=== PATIENT | female | born 1985 | race Two or more races ===

== ENCOUNTER 2019-05-04 02:07 | Emergency (ER) | payer OTHER ==
[~2019-05-04] VITALS: Ht 167.6 cm; Wt 63.5 kg
[2019-05-04] MEDS ORDERED: DEXTROSE 10% IN WATER 500 ML IV ONE (02:19)
--- NOTE | 2019-05-04 02:25 | NUR ---
ISHAAN FROM HOME. LETHARGIC BUT RESPONSIVE. NO RESP DISTRESS NOTED. BROUGHT IN FOR OVERDOSE OF XANAX. PT WAS REPORTED FOUND IN THE BATH TUB. PT REPORTS THAT SHE DOES NOT WANT TO LIVE ANYMORE AND THAT SHE DOES NOT LIKE HER JOB. REPORT TAKING UNKNOWN AMOUNT OF XANAX. PT PLACE ON SUICIDE PRECAUTION, STRIPPED OFF CLOTHES ANY BODY CHECK. BELONGINGS KEPT IN NURSING STATION. PLACED ON MONITOR. BS CHECKED WITH RESULT Darryl, AWARE. EKG AT BEDSIDE. IV LINE OBATAINED ON THE R AC 20G. BLOOD DRAWN AND GIVEN TO DIRECTOR ELECTRONICS AT BEDSIDE.
[2019-05-04] MEDS ORDERED: DEXTROSE 10% IN WATER 250 ML BAG IV ONE (02:30)
[2019-05-04] MEDS ORDERED: IV NS 0.9% 1,000 ML BAG IV ONE ×2 (02:30→04:00)
[2019-05-04 02:33] LABS: BASOPHILS # (AUTO) 0.1 /CMM (0.0-0.2); BASOPHILS % (AUTO) 0.7 % (0.0-2.0); EOSINOPHILS % (AUTO) 1.3 % (0.0-6.0); HEMATOCRIT 41 % (33-45); HEMOGLOBIN 13.8 g/dL (11.5-14.8); LYMPHOCYTES # (AUTO) 3.5 /CMM (0.8-4.8); LYMPHOCYTES % (AUTO) 47.1 % (20.0-44.0); MEAN CORPUSCULAR HGB CONC 34 g/dl (31.0-36.0); MEAN CORPUSCULAR VOLUME 93 fL (82-100); MONOCYTES # (AUTO) 0.4 /CMM (0.1-1.30); MONOCYTES % (AUTO) 5.4 % (2.0-12.0); NEUTROPHILS # (AUTO) 3.4 /CMM (1.8-8.9); NEUTROPHILS % (AUTO) 45.5 % (43.0-81.0); PLATELET COUNT (AUTO) 166 /CMM (150-450); RED BLOOD CELL COUNT(AUTO) 4.35 MIL/uL (4.0-5.2); WHITE BLOOD COUNT (AUTO) 7.4 K/uL (4.3-11.0)
[2019-05-04 02:39] LABS: CALCIUM, SERUM 9.3 mg/dL (8.5-10.1); CARBON DIOXIDE 27 mmol/L (21-32); CHLORIDE 104 mmol/L (98-107); GLUCOSE 88 mg/dL (74-106); POTASSIUM 3.4 mmol/L (3.5-5.1); SODIUM SERUM 140 mmol/L (136-145); UREA NITROGEN, BLOOD 10 mg/dL (7-18)
[2019-05-04 02:44] LABS: ALANINE AMINOTRANSFERASE 20 U/L (12-78); ALCOHOL, BLOOD < 3 mg/dL (0-0); ALKALINE PHOSPHATASE 35 U/L (46-116); ASPARTATE AMINOTRANSFERASE 16 U/L (15-37); BILIRUBIN,DIRECT 0.2 mg/dL (0.0-0.2); BILIRUBIN,TOTAL 0.7 mg/dL (0.2-1.0); TOTAL PROTEIN, SERUM 7.2 g/dL (6.4-8.2)
[2019-05-04 02:48] LABS: ACETAMINOPHEN 0 ug/ml (10-30); SALICYLATE 1.2 mg/dL (2.8-20.0)
--- NOTE | 2019-05-04 03:14 | NUR ---
URINE SENT OT LAB
--- NOTE | 2019-05-04 03:23 | NUR ---
MADE AWARE OF BP 96/60. VERBARL ORDERS FOR 1L NS
[2019-05-04 03:58] LABS: APPEARANCE,URINE Clear (CLEAR); BILIRUBIN,URINE Negative (NEGATIVE); BLOOD, URINE Negative Ery/uL (NEGATIVE); COLOR,URINE Yellow (YELLOW); KETONES,URINE Negative (NEGATIVE); LEUKOCYTE ESTERASE ,URINE Negative (NEGATIVE); NITRITE, URINE Negative (NEGATIVE); PH,URINE 6.5 (5.0-8.0); PROTEIN,URINE Negative (NEGATIVE); UGLUCOSE 500 MG/DL mg/dL (NEGATIVE); UROBILINOGEN,URINE 0.2 EU/dL (0.2)
--- NOTE | 2019-05-04 06:45 | NUR ---
PATIENTS MEDICATIONS GIVEN TO PHARMACY.
--- NOTE | 2019-05-04 07:45 | NUR ---
ALICIA PRITCHETT CALLED FOR A 1:1 SITTER
--- NOTE | 2019-05-04 07:46 | NUR ---
PT AWAKE, AMBULATED AND WENT TO RESTROOM. Addendum: 05/04/19 at 1038 by BETH PT AWAKE, AMBULATED WITH STEADY GAIT AND WENT TO RESTROOM.
--- NOTE | 2019-05-04 07:55 | NUR ---
WANDED BY SECURITY
--- NOTE | 2019-05-04 09:35 | NUR ---
TRANSONIC ENGINEER UBALDO WISEMAN AT BEDSIDE
--- NOTE | 2019-05-04 10:05 | NUR ---
PROVIDED W MEAL TRAY, PT TOLERATING PO WELL.
--- NOTE | 2019-05-04 10:34 | NUR ---
Patient discharged to home in stable condition. Written and verbal after care instructions given. Patient verbalizes understanding of instruction. 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
[2019-05-04 10:36] VITALS: BP 101/63
== END 2019-05-04 10:44 | disposition home or self-care (01) ==
LOC: ER 02:09
DX: T42.4X2A Poisoning by benzodiazepines, intentional self-harm, initial encounter (principal); F13.10 Sedative, hypnotic or anxiolytic abuse, uncomplicated; Z60.2 Problems related to living alone; Z88.4 Allergy status to anesthetic agent; Z86.74 Personal history of sudden cardiac arrest; Y92.89 Other specified places as the place of occurrence of the external cause
CPT/HCPCS: 36415; 80048; 80076; 80307; 80329; 81001; 82962 ×3; 84703; 85025; 93005; 99284; G0480; J7030 ×2; 80305; 81000-TC; J3490

== ENCOUNTER 2019-05-04 21:45 | Emergency (ER) | payer OTHER ==
[~2019-05-04] VITALS: Ht 167.6 cm; Wt 66.7 kg
--- NOTE | 2019-05-04 21:55 | NUR ---
PT BIBRA 39 FOR OVERDOSE FROM HOME, PER EMS PT TOOK 20 PILLS OF XANAX 2MG. PT AXO2. RESPIRATIONS EVEN AND UNLABORED. PT PUT ON THE ECCLESIASTICAL WORKER AND PULSE OX.
--- NOTE | 2019-05-04 21:55 | NUR ---
Note kylieone in EDM - 05/04/19 at 2240 by CARLIE PT BIBRA 39 FOR OVERDOSE FROM HOME, PER EMS PT TOOK 20 PILLS OF XANAX 2MG. PT AXO2. PT AROUSABLE TO PAIN. RESPIRATIONS EVEN AND UNLABORED. PT PUT ON THE BRANCH LENDING OFFICER AND PULSE OX.
--- NOTE | 2019-05-04 22:05 | NUR ---
LEE KRAMER AT BEDSIDE.
--- NOTE | 2019-05-04 22:10 | NUR ---
MOGUL OPERATOR AT BEDSIDE, LABS SENT.
--- NOTE | 2019-05-04 22:15 | NUR ---
URINE SAMPLE OBTAINED AND SENT TO LAB.
[2019-05-04 22:17] LABS: BASOPHILS % (AUTO) 0.6 % (0.0-2.0); EOSINOPHILS % (AUTO) 0.9 % (0.0-6.0); HEMATOCRIT 40 % (33-45); HEMOGLOBIN 13.7 g/dL (11.5-14.8); LYMPHOCYTES # (AUTO) 2.5 /CMM (0.8-4.8); LYMPHOCYTES % (AUTO) 34.5 % (20.0-44.0); MEAN CORPUSCULAR HGB CONC 34 g/dl (31.0-36.0); MEAN CORPUSCULAR VOLUME 94 fL (82-100); MONOCYTES # (AUTO) 0.5 /CMM (0.1-1.30); MONOCYTES % (AUTO) 6.4 % (2.0-12.0); NEUTROPHILS # (AUTO) 4.1 /CMM (1.8-8.9); NEUTROPHILS % (AUTO) 57.6 % (43.0-81.0); PLATELET COUNT (AUTO) 145 /CMM (150-450); RED BLOOD CELL COUNT(AUTO) 4.28 MIL/uL (4.0-5.2); WHITE BLOOD COUNT (AUTO) 7.2 K/uL (4.3-11.0)
[2019-05-04 22:22] LABS: APPEARANCE,URINE Clear (CLEAR); BILIRUBIN,URINE Negative (NEGATIVE); BLOOD, URINE Negative Ery/uL (NEGATIVE); COLOR,URINE Yellow (YELLOW); KETONES,URINE Negative (NEGATIVE); LEUKOCYTE ESTERASE ,URINE Negative (NEGATIVE); NITRITE, URINE Negative (NEGATIVE); PROTEIN,URINE Negative (NEGATIVE); UGLUCOSE Negative (NEGATIVE); UROBILINOGEN,URINE 0.2 EU/dL (0.2)
[2019-05-04 22:29] LABS: ALANINE AMINOTRANSFERASE 19 U/L (12-78); ALBUMIN 3.7 g/dL (3.4-5.0); ALCOHOL, BLOOD < 3 mg/dL (0-0); ALKALINE PHOSPHATASE 34 U/L (46-116); ASPARTATE AMINOTRANSFERASE 16 U/L (15-37); BILIRUBIN,DIRECT 0.1 mg/dL (0.0-0.2); BILIRUBIN,TOTAL 0.5 mg/dL (0.2-1.0); CALCIUM, SERUM 8.5 mg/dL (8.5-10.1); CARBON DIOXIDE 24 mmol/L (21-32); CHLORIDE 107 mmol/L (98-107); CREATININE 0.7 mg/dL (0.6-1.3); GLUCOSE 81 mg/dL (74-106); POTASSIUM 3.9 mmol/L (3.5-5.1); SODIUM SERUM 140 mmol/L (136-145); TOTAL PROTEIN, SERUM 6.8 g/dL (6.4-8.2); UREA NITROGEN, BLOOD 11 mg/dL (7-18)
[2019-05-04] MEDS ORDERED: DEXTROSE 50%-WATER 50 ML DISP.SYRIN IV ONE (22:30)
[2019-05-04] MEDS ORDERED: DEXTROSE 10% IN WATER 250 ML BAG IV ONE (22:30)
[2019-05-04] MEDS ORDERED: DEXTROSE 50%-WATER 50 ML DISP.SYRIN ONE (22:30)
[2019-05-04] MEDS ORDERED: IV NS 0.9% 1,000 ML BAG IV ONE (22:30)
[2019-05-05 00:01] LABS: SALICYLATE 1.1 mg/dL (2.8-20.0)
--- NOTE | 2019-05-05 01:05 | NUR ---
[facility] [place] [phone]
--- NOTE | 2019-05-05 01:40 | NUR ---
PT HYPOTENSIVE ON THE MONITOR. ER MD AWARE. WILL CARRY OUT ORDERS.
[2019-05-05] MEDS ORDERED: IV NS 0.9% 1,000 ML BAG IV ONE (02:00)
--- NOTE | 2019-05-05 03:30 | NUR ---
PT RESTING IN BED, NAD NOTED. WILL CONTINUE TO MONITOR. SITTER AT BEDSIDE.
--- NOTE | 2019-05-05 05:39 | NUR ---
PT RESTING IN BED, NAD NOTED. WILL CONTINUE TO MONITOR. SITTER AT BEDSIDE.
--- NOTE | 2019-05-05 07:10 | NUR ---
REPORT GIVEN TO JYOTI GILBERT FOR JEANETH.
--- NOTE | 2019-05-05 09:29 | NUR ---
PT MORE AWAKE, BUT STILL UNABLE TO AMBULATE TO BATHROOM. VITAL SIGNS UPDATED, RQUESTED TO HAVE DIAPER CHANGED.
[2019-05-05 09:43] LABS: BASOPHILS % (AUTO) 0.5 % (0.0-2.0); EOSINOPHILS % (AUTO) 1.5 % (0.0-6.0); HEMATOCRIT 38 % (33-45); HEMOGLOBIN 12.9 g/dL (11.5-14.8); LYMPHOCYTES # (AUTO) 2.4 /CMM (0.8-4.8); LYMPHOCYTES % (AUTO) 41.1 % (20.0-44.0); MEAN CORPUSCULAR HGB CONC 34 g/dl (31.0-36.0); MEAN CORPUSCULAR VOLUME 95 fL (82-100); MONOCYTES # (AUTO) 0.5 /CMM (0.1-1.30); MONOCYTES % (AUTO) 8.3 % (2.0-12.0); NEUTROPHILS # (AUTO) 2.8 /CMM (1.8-8.9); NEUTROPHILS % (AUTO) 48.6 % (43.0-81.0); PLATELET COUNT (AUTO) 148 /CMM (150-450); RED BLOOD CELL COUNT(AUTO) 4.01 MIL/uL (4.0-5.2); WHITE BLOOD COUNT (AUTO) 5.8 K/uL (4.3-11.0)
[2019-05-05 09:51] LABS: CALCIUM, SERUM 8.7 mg/dL (8.5-10.1); CREATININE 0.6 mg/dL (0.6-1.3); POTASSIUM 3.9 mmol/L (3.5-5.1)
[2019-05-05 09:58] LABS: ALBUMIN 3.4 g/dL (3.4-5.0); BILIRUBIN,DIRECT 0.1 mg/dL (0.0-0.2); BILIRUBIN,TOTAL 0.8 mg/dL (0.2-1.0); TOTAL PROTEIN, SERUM 6.5 g/dL (6.4-8.2)
--- NOTE | 2019-05-05 16:00 | NUR ---
Transfer Information: Accepted to [facility] Report To [phone] Accepting MD: Sanya
--- NOTE | 2019-05-05 16:08 | NUR ---
CALLED [facility] FOR S TRANSPORT. ETA 90 MIN TRIP# [phone]
[2019-05-05 17:00] VITALS: BP 100/50
--- NOTE | 2019-05-05 17:13 | NUR ---
REPORT GIVEN TO MARGOT ACOSTA JEANETH; NURSE AT [facility]
--- NOTE | 2019-05-05 17:37 | NUR ---
CALLED HER MOTHER AND LEFT A MESSAGE TO LET HER KNOW THAT HER DAUGHTER IS BEING TRANSFERRED TO [place]
--- NOTE | 2019-05-05 18:00 | NUR ---
PT LEFT IN STABLE CONDITION TO [facility] VIA PRIVATE AMBULANCE, VSS, ALL BELONGINGS WITH PATIENT, REPORT GIVEN AMBULANCE STAFF.
== END 2019-05-05 18:29 ==
LOC: ER 21:46
DX: T42.4X2A Poisoning by benzodiazepines, intentional self-harm, initial encounter (principal); F13.10 Sedative, hypnotic or anxiolytic abuse, uncomplicated; F10.10 Alcohol abuse, uncomplicated; Y90.0 Blood alcohol level of less than 20 mg/100 ml; Z86.74 Personal history of sudden cardiac arrest; Z60.2 Problems related to living alone; Z88.4 Allergy status to anesthetic agent; Y92.89 Other specified places as the place of occurrence of the external cause
CPT/HCPCS: 36415 ×2; 80048 ×2; 80076 ×2; 80164; 80307; 80329; 81001; 82962; 84703; 85025 ×2; 93005; 96374; 99285; G0480; J7030 ×2; 80305; 81000-TC

== ENCOUNTER 2023-04-08 10:10 | Emergency (ER) | payer OTHER ==
[~2023-04-08] VITALS: Ht 177.8 cm; Wt 68.5 kg
--- NOTE | 2023-04-08 10:18 | NUR ---
KARINA FROM HOME FOR WITNESSED SYNCOPE. BG 124 ON SCENE. PT UNDERWENT RECENT BRAIN SURGERY PER EMS.
--- NOTE | 2023-04-08 10:20 | NUR ---
ESTABLISHED IV LINE 22 R HAND
--- NOTE | 2023-04-08 10:22 | NUR ---
BLOOD SAMPLE OBTAINED SENT TO LAB
[2023-04-08] MEDS ORDERED: IV NS 0.9% 1,000 ML BAG IV ONE (11:00)
[2023-04-08 11:22] LABS: BASOPHILS % (AUTO) 0.3 % (0.0-2.0); EOSINOPHILS % (AUTO) 0.5 % (0.0-6.0); HEMATOCRIT 40 % (33-45); HEMOGLOBIN 12.5 g/dL (11.5-14.8); LYMPHOCYTES # (AUTO) 3.3 K/uL (0.8-4.8); LYMPHOCYTES % (AUTO) 31.7 % (20.0-44.0); MEAN CORPUSCULAR HGB CONC 32 g/dl (31.0-36.0); MEAN CORPUSCULAR VOLUME 87 fL (82-100); MONOCYTES # (AUTO) 0.6 K/uL (0.1-1.30); MONOCYTES % (AUTO) 6.3 % (2.0-12.0); NEUTROPHILS # (AUTO) 6.3 K/uL (1.8-8.9); NEUTROPHILS % (AUTO) 61.2 % (43.0-81.0); PLATELET COUNT (AUTO) 244 K/uL (150-450); RED BLOOD CELL COUNT(AUTO) 4.52 MIL/uL (4.0-5.2); WHITE BLOOD COUNT (AUTO) 10.3 K/uL (4.3-11.0)
--- NOTE | 2023-04-08 11:40 | NUR ---
Patient does not wish to proceed with medical care recommended by Dr. MARTINEZ. Patient given information related to possible complications, up to and including , which could occur as a result of leaving the hospital at this time. Patient verbalizes understanding of risks involved due to leaving against medical advice. Patient has signed AMA form.
[2023-04-08] MEDS ORDERED: ACETAMINOPHEN ES 500 MG TABLET PO ONE (12:00)
--- NOTE | 2023-04-08 12:18 | NUR ---
PATIENT LEFT THE DEPT WITH WHEELCHAIR ASSISTANCE FROM STAFFS.
[2023-04-08 12:21] VITALS: BP 112/61
== END 2023-04-08 12:22 | disposition left against medical advice (07) ==
LOC: ER 10:22
DX: R55 Syncope and collapse (principal); Z60.2 Problems related to living alone; Z88.1 Allergy status to other antibiotic agents
CPT/HCPCS: 99284; 96360; 93005; 85025; 36415; J7030